=== PATIENT | male | born 1965 | race Caucasian/White ===

== ENCOUNTER 2016-10-08 05:37 | Inpatient (IN) | payer BC ==
[2016-10-02 07:55] LABS: WBC (NOT ORDERED) (RFLEX) 0 (0-5)
[2016-10-02 08:15] LABS: BASOPHILS 0.4 %; BASOPHILS ABSOLUTE 0.03 10/3/uL (0.0-0.16); EOSINOPHILS 5.2 %; EOSINOPHILS ABSOLUTE 0.41 10/3/uL (0.0-0.53); HEMOGLOBIN 15.7 g/dL (13.6-17.8); IMMATURE GRANULOCYTES 0.3 %; IMMATURE GRANULOCYTES ABSOLUTE 0.02 10/3/uL (0.0-0.11); LYMPHOCYTES 23.1 %; LYMPHOCYTES ABSOLUTE 1.83 10/3/uL (0.67-4.30); MEAN CORPUS HGB CONC 35.7 g/dL (32.0-36.0); MEAN CORPUSCULAR VOLUME 92.4 fL (80-100); MEAN PLATELET VOLUME 8.9 fL (9.2-13.0); MONOCYTES 10.2 %; MONOCYTES ABSOLUTE 0.81 10/3/uL (0.21-1.20); NEUTROPHILS 60.8 %; NEUTROPHILS ABSOLUTE 4.83 10/3/uL (2.02-8.40); PLATELET COUNT 177 10/3/uL (150-400); RBC DISTRIBUTION WIDTH 13.4 % (12.0-16.0); RED CELL COUNT 4.76 10/6/uL (4.7-6.1); WHITE BLOOD CELLS 7.9 10/3/uL (4.5-10.5)
[2016-10-02 08:20] LABS: MANUAL DIFF NO %
[2016-10-02 08:30] LABS: PARTIAL THROMBO TIME 28.8 SEC (22.5-37.2); PROTIME (NOT ORD) 12.9 SEC (12.0-14.5)
[2016-10-02 08:31] LABS: BUN (BLOOD UREA NITROGEN) 11 MG/DL (6-23); CALCIUM, SERUM 8.4 MG/DL (8.5-10.4); CHLORIDE, SERUM 94 MMOL/L (96-112); CO2 (CARBON DIOXIDE) 32 MMOL/L (24-34); CREATININE 0.83 MG/DL (0.70-1.30); GFR AFRICAN AMERICAN 119 ML/MIN (>=60); GFR NON AFRICAN AMERICAN 103 ML/MIN (>=60); GLUCOSE, SERUM 104 MG/DL (60-99); POTASSIUM, SERUM 3.9 MMOL/L (3.5-5.3); SODIUM, SERUM 132 MMOL/L (135-148)
[2016-10-02 08:37] LABS: ASCORBIC ACID (UR NOT ORDER) NEG (NEG); BILIRUBIN, URINE NEGATIVE (NEG); KETONE, URINE NEGATIVE (NEG); LEUKOCYTE ESTERASE(NOT OR NEG (NEG)
--- NOTE | ~2016-10-08 | OP ---
Record Of Operation [facility] [address] [facility] [place]. [address] NAME: ORALIA JJ : 65 STATUS : ADM IN PAT#: [id number] AGE: 50 ADM/REG DATE : 10/08/16 MR#: [id number] REPORT SERV DATE: 10/08/16 DICTATED BY: TY DUNLAP DATE: 10/08/16 REPORT STATUS : Draft TRANSCRIBED BY: MODL DATE: 10/08/16 DATE OF PROCEDURE: 10/08/2016 PREOPERATIVE DIAGNOSIS: Critical right internal carotid artery stenosis. POSTOPERATIVE DIAGNOSIS: Critical right internal carotid artery stenosis. OPERATIVE PROCEDURE: Right carotid endarterectomy with shunt and CorMatrix patch arterioplasty. OPERATIVE SURGEON: Dr. Ty Dunlap. ANESTHESIA: General endotracheal anesthesia, AA. No drains were placed. PERTINENT HISTORY: The patient is a 50-year-old gentleman referred by Dr. Miller with severe carotid artery stenosis on the right noted by a carotid ultrasound. The patient is asymptomatic. OPERATIVE FINDINGS: The patient had a very long tight stenosis involving the right carotid artery bifurcation extending into the internal carotid artery for approximately 2 inches in length. OPERATIVE PROCEDURE: The patient was taken to the operating room and placed in the supine position. Anesthesia was obtained. The patient was prepped and draped in the usual fashion. Incision was made in the right neck into the sternocleidomastoid muscle. The platysma muscle was incised. The deep cervical fascia was incised. Retractor was placed. The facial vein was double ligated and divided. The common carotid artery was identified and dissected and circumscribed with vessel loop. The hypoglossal nerve was identified and preserved. The vagus nerve was identified and preserved and cervicalis was identified and divided. The carotid artery bifurcation was then dissected. The internal and external carotid arteries were all dissected and looped with vessel loops. Heparin was then infused and allowed to circulate for 3 minutes. Clamps were then applied. The common carotid artery was opened. Arteriotomy was extended across the plaque into the internal carotid artery. A #8 flexible [place] shunt was placed re-establishing flow into the internal carotid artery. Meticulous dissection was then required to free the entire plaque from the carotid artery and this was removed in its entirety. A CorMatrix patch was brought into the field and cut to appropriate shape and length. Arterioplasty was then sewn with a running 7-0 Prolene suture. Shunt was removed. Good hemostasis was noted. Good Doppler signal was noted. Additionally, the wounds were irrigated with saline. The deep cervical fascia was closed with running #1 StrataFix suture. The platysma muscle was closed with running #1 StrataFix suture. The subcutaneous tissues were closed with running 2-0 bidirectional Quill suture and the skin was approximated with bidirectional Quill suture. Sterile dressing applied. The patient tolerated the procedure well and was taken back to the recovery in stable Record Of Operation [address] [address] NAME: ORALIA JJ : 65 STATUS : ADM IN [facility]#: [id number] AGE: 50 ADM/REG DATE : 10/08/16 MR#: [id number] REPORT SERV DATE: 10/08/16 DICTATED BY: TY DUNLAP DATE: 10/08/16 REPORT STATUS : Draft TRANSCRIBED BY: MARLYN DATE: 10/08/16 condition. /MARLYN Ty Dunlap M.D. / [id number] CC: Ty Dunlap M.D.
[~2016-10-08 05:37] MED LIST: APRES10B PO; ASA5GR PO; ASABAYER PO; B-12 PO; BEN25 PO; CAT2 PO; CHANTIX1 PO; COREG3 PO; COREG6 PO; DIOV160 PO; DIOVAN HC1 PO; FISH-EPA1000 MG PO; FLONASE NAS; GAS-X80 MG PO; HALF81 PO; HYOSCYAMINE 0.125 MG PO; HYPOTEARS OPH; IBU800 PO; K-TABS10 MEQ PO; KLONO1 PO; KLOR-CON 1010 MEQ PO; KLOR-CON M2020 MEQ PO; L20 PO; LEVSINTAB PO; MIRALAX POWDER1 PKT PO; MSCONTIN PO; PLAVIX PO; PR25 PO; PREV30 PO; REG5 PO; RESTORIL30 MG PO; TEARS NATURA OPH; VIAGRA100 MG PO; X5 PO; XANAX1 MG PO; ZOCOR20 PO
[2016-10-09 03:34] LABS: BASOPHILS 0.1 %; BASOPHILS ABSOLUTE 0.01 10/3/uL (0.0-0.16); EOSINOPHILS 0.1 %; EOSINOPHILS ABSOLUTE 0.02 10/3/uL (0.0-0.53); HEMATOCRIT 43.6 % (40.0-51.0); HEMOGLOBIN 15.2 g/dL (13.6-17.8); IMMATURE GRANULOCYTES 0.3 %; IMMATURE GRANULOCYTES ABSOLUTE 0.04 10/3/uL (0.0-0.11); LYMPHOCYTES 8.1 %; LYMPHOCYTES ABSOLUTE 1.29 10/3/uL (0.67-4.30); MEAN CORPUS HGB CONC 34.9 g/dL (32.0-36.0); MEAN CORPUSCULAR HEMOGLOB 32.7 pg (26.0-34.0); MEAN CORPUSCULAR VOLUME 93.8 fL (80-100); MEAN PLATELET VOLUME 8.9 fL (9.2-13.0); MONOCYTES 7.8 %; MONOCYTES ABSOLUTE 1.23 10/3/uL (0.21-1.20); NEUTROPHILS 83.6 %; NEUTROPHILS ABSOLUTE 13.24 10/3/uL (2.02-8.40); PLATELET COUNT 168 10/3/uL (150-400); RBC DISTRIBUTION WIDTH 13.5 % (12.0-16.0); RED CELL COUNT 4.65 10/6/uL (4.7-6.1)
[2016-10-09 03:35] LABS: MANUAL DIFF NO %; WHITE BLOOD CELLS 15.8 10/3/uL (4.5-10.5)
[2016-10-09 03:48] LABS: BUN (BLOOD UREA NITROGEN) 10 MG/DL (6-23); CALCIUM, SERUM 8.5 MG/DL (8.5-10.4); CHLORIDE, SERUM 101 MMOL/L (96-112); CO2 (CARBON DIOXIDE) 31 MMOL/L (24-34); CREATININE 0.69 MG/DL (0.70-1.30); GFR AFRICAN AMERICAN 128 ML/MIN (>=60); GFR NON AFRICAN AMERICAN 111 ML/MIN (>=60); GLUCOSE, SERUM 116 MG/DL (60-99); SODIUM, SERUM 138 MMOL/L (135-148)
[2016-10-09 03:51] LABS: POTASSIUM, SERUM 4.8 MMOL/L (3.5-5.3)
== END 2016-10-09 12:25 | disposition home or self-care (01) | DRG 39 ==
LOC: SDC/OF 05:37 → PACU 10:50 → CVICU 14:48
PROVIDERS: Thoracic Surgery (Cardiothoracic Vascular Surgery)
PROC: 03UK0JZ Supplement Right Internal Carotid Artery with Synthetic Substitute, Open Approach (ICD-10-PCS; 2016-10-08)
PROC: 03CK0ZZ Extirpation of Matter from Right Internal Carotid Artery, Open Approach (ICD-10-PCS; principal; 2016-10-08 07:45)
DX: I65.21 Occlusion and stenosis of right carotid artery (principal); I10 Essential (primary) hypertension; E78.5 Hyperlipidemia, unspecified; I25.10 Atherosclerotic heart disease of native coronary artery without angina pectoris; K21.9 Gastro-esophageal reflux disease without esophagitis; G47.33 Obstructive sleep apnea (adult) (pediatric); F17.210 Nicotine dependence, cigarettes, uncomplicated; Z95.5 Presence of coronary angioplasty implant and graft; Z79.82 Long term (current) use of aspirin; Z88.0 Allergy status to penicillin; Z88.5 Allergy status to narcotic agent; I25.2 Old myocardial infarction; Z86.73 Personal history of transient ischemic attack (TIA), and cerebral infarction without residual deficits
CPT/HCPCS: 36415; 71020; 80048; 81001; 82962; 85025; 85610; 85730; 86850; 86900; 86901; 86920; 87641; 88304; 88311; 93005; A9270-GY; C1782; J1580; J2250; J2270; J2370; J2405; J2550; J2710; J2795; J3010; J3370